=== PATIENT | female | born 1950 | race African-American/Black ===

== ENCOUNTER 2018-03-10 14:56 | Emergency (ER) | payer MEDICARE ==
[~2018-03-10] VITALS: Ht 167.6 cm; Wt 43.5 kg
[2018-03-10 14:56] VITALS: BP 85/56
[~2018-03-10 14:56] MED LIST: LEVE500T56 PO; SULF1TAB24 PO; ZONI100C PO
[2018-03-10] MEDS ORDERED: IV NORMAL SALINE 1000ML BAG 1,000 ML IV ONE (15:00)
--- NOTE | 2018-03-10 15:20 | EKG ---
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
[2018-03-10 15:39] LABS: BASO % 0 % (0-3); EOS % 0 % (0-3); HEMATOCRIT 28.8 % (36.0-47.0); HEMOGLOBIN 9.3 g/dL (12.0-15.5); LYMPH # 0.9 x10^3/uL (1.0-4.8); LYMPH % 21 % (24-48); MEAN CORPUSCULAR HEMOGLOBIN 31 pg (25-35); MEAN CORPUSCULAR HGB CONC 32 g/dL (31-37); MEAN CORPUSCULAR VOLUME 95 fL (79-100); MONO # 0.2 x10^3/uL (0.0-1.1); MONO % 5 % (0-9); NEUT # 3.1 x10^3uL (1.8-7.7); NEUT % 74 % (31-73); PLATELET COUNT 169 x10^3/uL (140-400); RED BLOOD COUNT 3.05 x10^6/uL (3.50-5.40); RED CELL DISTRIBUTION WIDTH 14.1 % (11.5-14.5); WHITE BLOOD COUNT 4.1 x10^3/uL (4.0-11.0)
[2018-03-10 15:50] LABS: BILIRUBIN,URINE NEGATIVE (NEG); CLARITY,URINE CLEAR; COLOR,URINE YELLOW; NITRITE,URINE NEGATIVE (NEG); PH,URINE 6.5; PROTEIN,URINE NEGATIVE (NEG-TRACE); UROBILINOGEN,URINE 0.2 mg/dL (0.2 mg/dL)
[2018-03-10 15:55] LABS: BARBITURATES NEG (NEG); BENZODIAZEPINES NEG (NEG); CANNABINOIDS POS (NEG); COCAINE NEG (NEG); METHADONE NEG (NEG); OPIATES NEG (NEG); PHENCYCLIDINE NEG (NEG)
[2018-03-10 16:00] LABS: AMPHETAMINE/METHAMPHETAMINE NEG (NEG)
[2018-03-10 16:01] LABS: BACTERIA,URINE 0 /HPF (0-FEW); SQUAMOUS EPITHELIAL CELL,UR FEW /LPF; WBC,URINE OCC /HPF (0-4)
[2018-03-10 16:22] LABS: PROTHROMBIN TIME PATIENT 13.9 SEC (11.7-14.0)
[2018-03-10 16:25] LABS: CALCIUM 8.7 mg/dL (8.5-10.1); CREATININE 2.2 mg/dL (0.6-1.0); POTASSIUM 4.1 mmol/L (3.5-5.1)
--- NOTE | 2018-03-10 16:26 | RAD ---
RS Compliance Statement: One or more of the following individualized dose reduction techniques were utilized for this examination: 1. Automated exposure control 2. Adjustment of the mA and/or kV according to patient size 3. Use of iterative reconstruction technique CT HEAD WITHOUT CONTRAST History: FALL TODAY Comparison: CT head without contrast January 31, 2018. Procedure: Axial images are obtained of the head from the skull base through the vertex without IV contrast. Findings: The ventricles and sulci are normal for the patient's age. Probable small focus of encephalomalacia in the subcortical right parietal lobe, stable. Tiny old lacunar infarct left caudate nucleus, stable. No mass-effect, midline shift, hemorrhage, extra-axial fluid collection, or obvious acute infarction is identified. Basilar cisterns are patent. Bone windows demonstrate no acute calvarial abnormality. Mild mucosal thickening bilateral maxillary sinuses. The other paranasal sinuses are clear. Mastoid air cells are well aerated. IMPRESSION: No acute intracranial abnormality. Electronically signed by: Conrad Jean-Baptiste MD (03/10/2018 4:21 PM) [facility]
[2018-03-10 16:28] LABS: ALBUMIN 3.1 g/dL (3.4-5.0); ALBUMIN/GLOBULIN RATIO 0.5 (1.0-1.7); MAGNESIUM 2.2 mg/dL (1.8-2.4); TOTAL BILIRUBIN 0.2 mg/dL (0.2-1.0); TOTAL PROTEIN 9.2 g/dL (6.4-8.2)
--- NOTE | 2018-03-10 17:04 | RAD ---
PORTABLE CHEST 1V Clinical Indication: WEAKNESS, HX OF SEIZURES Comparison: AP chest, January 29, 2011. Findings: The cardiomediastinal silhouette is normal. Lungs are clear. There is no pneumothorax. No pleural effusion is appreciated. No acute bone abnormality. IMPRESSION: No acute cardiopulmonary process. Electronically signed by: Conrad Jean-Baptiste MD (03/10/2018 5:00 PM) [facility]
--- NOTE | 2018-03-10 17:20 | PHYS DOC ---
Past Medical History Past Medical History: Seizure, UTI Past Surgical History: Cholecystectomy, Hysterectomy, Other Additional Past Surgical Histo: ankle surgery Alcohol Use: None Drug Use: None Adult General Chief Complaint Chief Complaint: NEAR SYNCOPE HPI HPI Patient is a 67 year old female was brought in by ambulance with a chief complaint of found unresponsive she was lying, on the side of her bed daughter came and found her and then she became she had some bilateral sort of seizure activity and then she became quite agitated as she came out of this. The daughter said that she thought it might be a seizure. Was slightly different pattern of movement compared her usual seizures. Currently the patient is feeling better no recent fevers no chest pain no shortness of breath. She is compliant with her Keppra. No abdominal pain Review of Systems Review of Systems Constitutional: Denies fever or chills [] Eyes: Denies change in visual acuity, redness, or eye pain [] Cardiovascular: No additional information not addressed in HPI [] GI: Denies abdominal pain, nausea, vomiting, bloody stools or diarrhea [] : Denies dysuria or hematuria [] Musculoskeletal: Denies back pain or joint pain [] Endocrine: Denies polyuria or polydipsia [] All other systems were reviewed and found to be within normal limits, except as documented in this note. Current Medications Current Medications Current Medications Medications (Trade) Dose Ordered Sig/Fernanda Start Time Stop Time Status Last Admin Dose Admin Lorazepam (Ativan) 1 mg 1X ONCE 03/10/18 15:15 03/10/18 15:16 DC 03/10/18 15:10 1 MG Sodium Chloride 1,000 ml @ 1,000 mls/hr 1X ONCE 03/10/18 15:00 03/10/18 15:59 DC 03/10/18 15:07 1,000 MLS/HR Allergies Allergies Allergies Coded Allergies Type Severity Reaction Last Updated Verified phenytoin Allergy Unknown 03/12/14 No Physical Exam Physical Exam Constitutional: Well developed, cachectic mild distress HENT: Normocephalic, atraumatic, bilateral external ears normal, oropharynx dry , no oral exudates, nose normal. [] Eyes: PERRLA, EOMI, conjunctiva normal, no discharge. [] Neck: Normal range of motion, no tenderness, supple, no stridor. [] Cardiovascular:Heart rate regular rhythm, no murmur [] Lungs & Thorax: Bilateral breath sounds clear to auscultation [] Abdomen: Bowel sounds normal, soft, no tenderness, no masses, no pulsatile masses. [] Skin: Warm, dry, no erythema, no rash. [] Back: No tenderness, no CVA tenderness. [] Extremities: No tenderness, no cyanosis, no clubbing, ROM intact, no edema. [] Neurologic: Alert and oriented X 3 (initailly 2 on re-eval was three and had gait at baseline with daughter at her side), normal motor function, normal sensory function, no focal deficits noted. [] Psychologic: Affect normal, judgement normal, mood initially mild agitaion but this resolved] Current Patient Data Vital Signs Vital Signs Date Time Temp Pulse Resp B/P (MAP) Pulse Ox O2 Delivery O2 Flow Rate FiO2 03/10/18 14:56 99.6 75 16 85/56 (66) 100 Room Air 99.6 Blood pressure recheck was 130/60. Lab Values Laboratory Tests Test 03/10/18 15:22 03/10/18 15:41 03/10/18 16:05 White Blood Count 4.1 x10^3/uL (4.0-11.0) Red Blood Count 3.05 x10^6/uL (3.50-5.40) L Hemoglobin 9.3 g/dL (12.0-15.5) L Hematocrit 28.8 % (36.0-47.0) L Mean Corpuscular Volume 95 fL (79-100) Mean Corpuscular Hemoglobin 31 pg (25-35) Mean Corpuscular Hemoglobin Concent 32 g/dL (31-37) Red Cell Distribution Width 14.1 % (11.5-14.5) Platelet Count 169 x10^3/uL (140-400) Neutrophils (%) (Auto) 74 % (31-73) H Lymphocytes (%) (Auto) 21 % (24-48) L Monocytes (%) (Auto) 5 % (0-9) Eosinophils (%) (Auto) 0 % (0-3) Basophils (%) (Auto) 0 % (0-3) Neutrophils # (Auto) 3.1 x10^3uL (1.8-7.7) Lymphocytes # (Auto) 0.9 x10^3/uL (1.0-4.8) L Monocytes # (Auto) 0.2 x10^3/uL (0.0-1.1) Eosinophils # (Auto) 0.0 x10^3/uL (0.0-0.7) Basophils # (Auto) 0.0 x10^3/uL (0.0-0.2) Urine Collection Type U cath Urine Color Yellow Urine Clarity Clear Urine pH 6.5 Urine Specific [place] 1.015 Urine Protein Negative mg/dL (NEG-TRACE) Urine Glucose (UA) Negative mg/dL (NEG) Urine Ketones (Stick) Negative mg/dL (NEG) Urine Blood Negative (NEG) Urine Nitrite Negative (NEG) Urine Bilirubin Negative (NEG) Urine Urobilinogen Dipstick 0.2 mg/dL (0.2 mg/dL) Urine Leukocyte Esterase Trace (NEG) Urine RBC 3-5 /HPF (0-2) Urine WBC Occ /HPF (0-4) Urine Squamous Epithelial Cells Few /LPF Urine Transitional Epithelial Cells Occ /LPF Urine Bacteria 0 /HPF (0-FEW) Urine Opiates Screen Neg (NEG) Urine Methadone Screen Neg (NEG) Urine Barbiturates Neg (NEG) Urine Phencyclidine Screen Neg (NEG) Urine Amphetamine/Methamphetamine Neg (NEG) Urine Benzodiazepines Screen Neg (NEG) Urine Cocaine Screen Neg (NEG) Urine Cannabinoids Screen Pos (NEG) Urine Ethyl Alcohol Neg (NEG) Prothrombin Time 13.9 SEC (11.7-14.0) Prothrombin Time INR 1.1 (0.8-1.1) Sodium Level 136 mmol/L (136-145) Potassium Level 4.1 mmol/L (3.5-5.1) Chloride Level 104 mmol/L (98-107) Carbon Dioxide Level 21 mmol/L (21-32) Anion Gap 11 (6-14) Blood Urea Nitrogen 36 mg/dL (7-20) H Creatinine 2.2 mg/dL (0.6-1.0) H Estimated GFR (Cockcroft-Gault) 27.0 BUN/Creatinine Ratio 16 (6-20) Glucose Level 94 mg/dL (70-99) Calcium Level 8.7 mg/dL (8.5-10.1) Magnesium Level 2.2 mg/dL (1.8-2.4) Total Bilirubin 0.2 mg/dL (0.2-1.0) Aspartate Amino Transferase (AST) 29 U/L (15-37) Alanine Aminotransferase (ALT) 32 U/L (14-59) Alkaline Phosphatase 128 U/L (46-116) H Troponin I Quantitative < 0.017 ng/mL (0.000-0.055) Total Protein 9.2 g/dL (6.4-8.2) H Albumin 3.1 g/dL (3.4-5.0) L Albumin/Globulin Ratio 0.5 (1.0-1.7) L Ethyl Alcohol Level < 10 mg/dL (0-10) Laboratory Tests 03/10/18 15:22 Laboratory Tests 03/10/18 16:05 EKG EKG []nsr rate 82 no ischemic changes intervals normal no stemi Radiology/Procedures Radiology/Procedures [] Impressions: PORTABLE CHEST 1V Clinical Indication: WEAKNESS, HX OF SEIZURES Comparison: AP chest, January 29, 2011. Findings: The cardiomediastinal silhouette is normal. Lungs are clear. There is no pneumothorax. No pleural effusion is appreciated. No acute bone abnormality. IMPRESSION: No acute cardiopulmonary process. Electronically signed by: Conrad Leyva MD (03/10/2018 5:00 PM) [facility] DICTATED and SIGNED BY: CONRAD LEYVA MD DATE: 03/10/18 5688 Procedure: Axial images are obtained of the head from the skull base through the vertex without IV contrast. Findings: The ventricles and sulci are normal for the patient's age. Probable small focus of encephalomalacia in the subcortical right parietal lobe, stable. Tiny old lacunar infarct left caudate nucleus, stable. No mass-effect, midline shift, hemorrhage, extra-axial fluid collection, or obvious acute infarction is identified. Basilar cisterns are patent. Bone windows demonstrate no acute calvarial abnormality. Mild mucosal thickening bilateral maxillary sinuses. The other paranasal sinuses are clear. Mastoid air cells are well aerated. IMPRESSION: No acute intracranial abnormality. Electronically signed by: Conrad Leyva MD (03/10/2018 4:21 PM) [facility] DICTATED and SIGNED BY: CONRAD LEYVA MD DATE: 03/10/18 4317 Course & Med Decision Making Course & Med Decision Making Pertinent Labs and Imaging studies reviewed. (See chart for details) 67 yo f who is p/w transient altered mental status. L will now resolved hx of seizure likely seizure. in the er the patient is doing well walking and back to baseline, daughter is comfortable taking her home. Dragon Disclaimer Dragon Disclaimer This electronic medical record was generated, in whole or in part, using a voice recognition dictation system. Departure Departure Impression: Primary Impression: Seizure Disposition: 01 HOME, SELF-CARE Condition: STABLE Patient Instructions: Seizure, Adult LYNDON BAKER MD Mar 10, 2018 17:20
== END 2018-03-10 17:23 | disposition home or self-care (01) ==
LOC: ER 14:56
DX: R56.9 Unspecified convulsions (principal); R55 Syncope and collapse; Z88.8 Allergy status to other drugs, medicaments and biological substances; Z90.710 Acquired absence of both cervix and uterus; Z90.49 Acquired absence of other specified parts of digestive tract
CPT/HCPCS: 36415; 70450; 71045; 80053; 80307; 81001; 83735; 84484; 85025; 85610; 87086; 93005; 96361; 96374; 99284; G0480; J2060; J7030; P9612

== ENCOUNTER → 2020-11-25 | Day surgery (SDC) | payer MEDICARE ==
[~2020-11-25] VITALS: Ht 154.9 cm; Wt 50.0 kg
[~2020-11-25] MED LIST changes: +FLUO20CA20 PO; +IV RINGERS,LACTATED 1000ML 1,000 ML IV SCH; +LIDOCAINE 2% PF 5 ML VIAL. ONE; +MIRT7.5T8 PO; +OMEP40CA7 PO; +PROPOFOL 10 MG/ML (20ML) VIAL. IV ONE; -ZONI100C PO; +ZONI100C26 PO
[2020-11-25 09:09] VITALS: BP 128/81
[2020-11-25 09:12] VITALS: BP 128/81
[2020-11-25 10:33] VITALS: BP 94/51
== END | disposition home or self-care (01) ==
LOC: ENDOS 08:44
PROVIDERS: ATTEND Internal Medicine Gastroenterology
DX: R13.10 Dysphagia, unspecified (principal); K44.9 Diaphragmatic hernia without obstruction or gangrene; K31.89 Other diseases of stomach and duodenum; K21.9 Gastro-esophageal reflux disease without esophagitis; F32.9 Major depressive disorder, single episode, unspecified; Z90.710 Acquired absence of both cervix and uterus; Z98.890 Other specified postprocedural states; Z79.899 Other long term (current) drug therapy; Z88.8 Allergy status to other drugs, medicaments and biological substances
CPT/HCPCS: 43239; 43249; 88305; 88342; C1726; J2704; 43233

== ENCOUNTER → 2021-02-10 | Day surgery (SDC) | payer MEDICARE, MEDICAID ==
[~2021-02-10] VITALS: Ht 152.4 cm; Wt 47.0 kg
[~2021-02-10] MED LIST changes: -FLUO20CA20 PO; +FLUO20CA22 PO
[2021-02-10 08:50] VITALS: BP 115/56
--- NOTE | 2021-02-10 09:40 | PREOP HP ---
DATE OF SERVICE: 02/10/2021 DATE OF PROCEDURE: 02/10/2021. REQUESTING PHYSICIAN: Catina Barrios. PRIMARY CARE PHYSICIAN: Catina Barrios. REASON FOR PROCEDURE: Dysphagia. HISTORY OF PRESENT ILLNESS: This is a 70-year-old female who has a history of an upper esophageal stenosis that was dilated last on 11/25/2020. She is to undergo upper endoscopy with dilation for further treatment. ALLERGIES: DILANTIN. PAST MEDICAL HISTORY: Esophageal stenosis. FAMILY MEDICAL HISTORY: No colon cancer. MEDICATIONS: MAR reviewed. REVIEW OF SYSTEMS: A 13-point review of systems was done and is positive as per HPI and otherwise negative. PHYSICAL EXAMINATION: VITAL SIGNS: She is afebrile and her vital signs are stable. GENERAL: She is a thin, -Armenian female in no apparent distress. HEENT: She has poor dentition. CARDIOVASCULAR: S1, S2. LUNGS: Clear. ABDOMEN: Normoactive bowel sounds, soft, nontender, nondistended. EXTREMITIES: No edema. NEUROLOGIC: Awake, alert, oriented x 3. ASSESSMENT AND PLAN: Esophageal stenosis. She is to undergo upper endoscopy with dilation for further treatment. The risks and benefits of the procedure including bleeding, perforation, nondiagnosis, potential tooth dislodgement, given poor dentition were explained and she has agreed to proceed. REID/DEBORAH JONES: Shiloh TID: [id number]
[2021-02-10 09:55] VITALS: BP 114/59
== END | disposition home or self-care (01) ==
LOC: ENDOS 08:01
PROVIDERS: ATTEND Internal Medicine Gastroenterology
DX: R13.10 Dysphagia, unspecified (principal); K44.9 Diaphragmatic hernia without obstruction or gangrene; K22.2 Esophageal obstruction; K31.89 Other diseases of stomach and duodenum; K21.9 Gastro-esophageal reflux disease without esophagitis; F32.9 Major depressive disorder, single episode, unspecified; Z90.710 Acquired absence of both cervix and uterus; Z98.890 Other specified postprocedural states; Z79.899 Other long term (current) drug therapy; Z90.49 Acquired absence of other specified parts of digestive tract; Z88.8 Allergy status to other drugs, medicaments and biological substances
CPT/HCPCS: 43249; C1726; J2704; 43233

== ENCOUNTER → 2021-04-19 | Outpatient (CLI) | payer MEDICARE, MEDICAID ==
[2021-02-10 09:55] VITALS: BP 114/59
[~2021-04-19] MED LIST changes: -IV RINGERS,LACTATED 1000ML 1,000 ML IV SCH; -LIDOCAINE 2% PF 5 ML VIAL. ONE; -PROPOFOL 10 MG/ML (20ML) VIAL. IV ONE
--- NOTE | 2021-04-19 14:56 | KCIC ---
EXAM: RENAL ULTRASOUND CLINICAL HISTORY: Chronic kidney disease stage III COMPARISON: None available. TECHNIQUE: Ultrasound examination of the bilateral kidneys and urinary bladder was performed. FINDINGS: The right kidney measures 7.1 x 4.5 x 3.9 cm. The left kidney measures 8.4 cm 4.5 cm. Echogenic appea ring bilateral kidneys. Examination is limited due to bowel gas. No evidence of hydronephrosis. Urinary bladder is mildly distended. IMPRESSION: 1. Echogenic appearing bilateral kidneys likely medical renal disease. Electronically signed by: Tani Rizo MD (04/19/2021 2:53 PM) [id number]
--- NOTE | 2021-04-19 15:32 | KCIC ---
EXAM: DUAL ENERGY X-RAY ABSORPTIOMETRY (DEXA). HISTORY: Postmenopausal screening. FINDINGS: The lowest measured T-score is -3.7 in the left total femur, based on a bone mineral densit y of 0.485 g/cm^2. Refer to the worksheets for full detail. No comparison examinations are available. IMPRESSION: Osteoporosis. Bone mineral density yields a T-score of -2.5 or less. Fracture risk is high. FRAX was not calculated. METHODOLOGY: Dual energy x-ray absorptiometry was performed to measure bone mineral density. The foll owing analysis is based on the 2019 Official Positions of the International Society for Clinical Dens itometry: Measurements of the hips and the average of L1-L4 are preferred. When the spine and/or hip cannot be feasibly measured or interpreted, or in the setting of hyperparathyroidism, distal radial bone minera l density may be measured. The lumbar spine T-score is based on the average bone mineral density of L1-L4. In the setting of art ifact or anatomic abnormality, some lumbar levels may be excluded, and the remaining levels used for calculation. A single lumbar level is not used for diagnosis, and if only a single level is available for assessment, another anatomic site will be used to assign a diagnosis. The hip T-score is based on the bone mineral density measurement of the femoral neck or total proxima l femur of either side, whichever is lowest. Bilateral mean values are not used for diagnosis. The forearm T-score is derived from 33% of the distal radius of the nondominant forearm. For postmenopausal and perimenopausal women, and men age 50 or older, of all ethnic groups, T-scores are calculated through comparison of the current measurement with the NHANES III database standard fo r females aged 20-29 years. The lowest T-score of the evaluated anatomic sites is used to a ssign a diagnosis based on the World Health Organization densitometric classification. In premenopausal females and males younger than age 50, a Z-score is calculated based on population s pecific reference data for patient sex and self-reported ethnicity. Electronically signed by: Staci Sheridan MD (04/19/2021 3:30 PM) [facility]
== END ==
LOC: KCIC US 14:05
PROVIDERS: ATTEND Nurse Practitioner Family
DX: N18.30 Chronic kidney disease, stage 3 unspecified (principal); M81.8 Other osteoporosis without current pathological fracture; Z78.0 Asymptomatic menopausal state
CPT/HCPCS: 76770; 77080

== ENCOUNTER → 2021-06-23 | Day surgery (SDC) | payer MEDICARE, MEDICAID ==
[~2021-06-23] VITALS: Ht 157.5 cm; Wt 40.0 kg
[~2021-06-23] MED LIST changes: +IV NORMAL SALINE 1000ML BAG 1,000 ML IV ONE; +LIDOCAINE 2% PF 5 ML VIAL. ONE; +PROPOFOL 10 MG/ML (20ML) VIAL. IV ONE
[2021-06-23 09:00] VITALS: BP 89/56
[2021-06-23 10:25] VITALS: BP 114/62
== END | disposition home or self-care (01) ==
LOC: ENDOS 08:25
PROVIDERS: ATTEND Internal Medicine Gastroenterology
DX: R13.10 Dysphagia, unspecified (principal); K22.2 Esophageal obstruction; K44.9 Diaphragmatic hernia without obstruction or gangrene; K31.89 Other diseases of stomach and duodenum; N18.9 Chronic kidney disease, unspecified; K21.9 Gastro-esophageal reflux disease without esophagitis; F32.9 Major depressive disorder, single episode, unspecified; Z90.49 Acquired absence of other specified parts of digestive tract; Z90.710 Acquired absence of both cervix and uterus; Z98.890 Other specified postprocedural states; Z79.899 Other long term (current) drug therapy; Z88.8 Allergy status to other drugs, medicaments and biological substances
CPT/HCPCS: 43249; C1726; J2704; 43233